=== PATIENT | female | born 1995 | race Caucasian/White ===

== ENCOUNTER → 2017-04-01 13:19 | Emergency (ER) | payer SELFPAY ==
--- NOTE | 2017-04-01 15:33 | ED ---
Laceration/Wound HPI - HPI Summary HPI Summary: 21F presents with left thumb laceration today. She was in lab and was cutting off cartilage from a cow and cut her finger. She saw her blood and passed out. She denies any symptoms currently. She got lightheaded and nauseous before she passed out. She does not have a history of passing out. She has no PMH and no family history of heart disease. She denies any chest pain or SOB. She has full ROM of her finger. She denies any numbness or tingling. She is right handed. - History of Current Complaint Stated Complaint: FINGER LAC Time Seen by Provider: 04/01/17 13:35 Pain Intensity: 5 - Allergy/Home Medications Allergies/Adverse Reactions: Allergies Allergy/AdvReac Type Severity Reaction Status Date / Time No Known Allergies Allergy Verified 04/01/17 13:31 PMH/Surg Hx/FS Hx/Imm Hx Endocrine/Hematology History: Denies: Hx Anticoagulant Therapy Cardiovascular History: Denies: Hx Hypertension Infectious Disease History: No Infectious Disease History: Denies: Traveled Outside the [place] in Last 30 Days - Family History Known Family History: Negative: Cardiac Disease - Social History Alcohol Use: None Substance Use Type: Reports: None Smoking Status (MU): Never Smoked Tobacco Review of Systems Negative: Fever Negative: Chest Pain Negative: Shortness Of Breath Positive: Other - left thumb laceration Positive: Syncope All Other Systems Reviewed And Are Negative: Yes Physical Exam Triage Information Reviewed: Yes Vital Signs On Initial Exam: Initial Vitals Temp Pulse Resp BP Pulse Ox 98 F 73 15 105/73 100 04/01/17 13:26 04/01/17 13:26 04/01/17 13:26 04/01/17 13:26 04/01/17 13:26 Vital Signs Reviewed: Yes Appearance: Positive: Well-Appearing Skin: Positive: Warm, Dry, Other - laceration of dorsum of hand 2 cm over Ip joint Head/Face: Positive: Normal Head/Face Inspection Eyes: Positive: Normal, Conjunctiva Clear ENT: Positive: Normal ENT inspection, Pharynx normal, TMs normal Respiratory/Lung Sounds: Positive: Clear to Auscultation, Breath Sounds Present Cardiovascular: Positive: Normal, RRR Abdomen Description: Positive: Nontender, Soft Bowel Sounds: Positive: Present Neurological: Positive: Sensory/Motor Intact, Alert, Oriented to Person Place, Time, CN Intact II-III - [place] Coma Scale Coma Scale Total: 13 Procedures - Laceration/Wound Repair 1 Location: Other - thumb laceration Description: Linear Anesthesia: Digital, 1.0% Length, Depth and Shape: 2cm superifical Betadine Prep?: Yes Irrigated w/ Saline (ccs): 100 Closure: Single Layer Suture Type: Prolene - 4-0 Number of Sutures: 3 Diagnostics - Vital Signs Vital Signs Temp Pulse Resp BP Pulse Ox 04/01/17 13:26 98 F 73 15 105/73 100 - Laboratory Lab Results: Lab Results 04/01/17 Range/Units 13:41 POC Glucose (mg/dL) 131 H (74-106) mg/dL Lab Statement: Any lab studies that have been ordered have been reviewed, and results considered in the medical decision making process. - EKG No standard instances Cardiac Rate: NL EKG Rhythm: Sinus Rhythm ST Segment: Normal Laceration Repair Course/Dx - Course Course Of Treatment: 21F presents with left thumb laceration today. She was in lab and was cutting off cartilage from a cow and cut her finger. She saw her blood and passed out. She denies any symptoms currently. She got lightheaded and nauseous before she passed out. EKG normal and blood glucose normal. syncope likely vasovagal reaction. placed 3 sutures in area and placed splint on area. patient understands and agrees with plan - Differential Dx Differental Diagnoses: Abrasion, Avulsion, Laceration, Other - syncope - Clinical Impression Provider Diagnoses: Laceration of left thumb, Syncope Discharge - Discharge Plan Condition: Good Disposition: HOME Patient Education Materials: Care For Your Stitches (ED) Referrals: [facility] [Primary Care Provider] - Additional Instructions: Keep area in splint for 5 days, change dressing once a day Keep area clean and dry for 48 hours Take Tylenol or ibuprofen for pain every 6 hours Return to ED or primary for suture removal in 10-14 days Return to ED if develop signs of infection such as fever, spreading redness, or pus formation
[2017-04-01 15:57] VITALS: BP 91/47
== END | disposition home or self-care (01) ==
LOC: ED 13:19
DX: S61.012A Laceration without foreign body of left thumb without damage to nail, initial encounter (principal); R55 Syncope and collapse; X58.XXXA Exposure to other specified factors, initial encounter; Y93.9 Activity, unspecified; Y92.9 Unspecified place or not applicable; Y99.9 Unspecified external cause status
CPT/HCPCS: 93005; 99283